=== PATIENT | male | born 1975 | race Caucasian/White ===

== ENCOUNTER 2022-09-05 15:18 | Outpatient (REF) | payer MEDICAID, SELFPAY ==
--- NOTE | ~2022-09-05 | XR_ITS ---
EXAMINATION: XR SHOULDER, LEFT CLINICAL INFORMATION: Chronic left shoulder pain. COMPARISON: Left shoulder radiographs dated 04/26/2006. TECHNIQUE: AP external rotation, Grashey, scapular Y, and axillary views of the left shoulder. FINDINGS: There is abnormal widening of the left acromioclavicular joint up to 2.2 cm. Corticated osseous densities are seen in the joint space. Chronic post surgical changes are seen in the distal left clavicle. If acute fracture. The left glenohumeral joint is intact. XR/XR shoulder LT min 2V IMPRESSION: Postsurgical/traumatic changes similar to the 2006 study. No acute abnormality.
== END 2022-09-05 15:19 | disposition home or self-care (01) ==
LOC: HO.XRAY 15:18
PROVIDERS: PCP Internal Medicine Geriatric Medicine; Visit Provider Emergency Medicine
DX: M25.512 Pain in left shoulder (principal)
CPT/HCPCS: 73030

== ENCOUNTER 2022-11-01 17:46 | Outpatient (REF) | payer MEDICAID, SELFPAY ==
--- NOTE | ~2022-11-01 | MR_ITS ---
EXAMINATION: MR SHOULDER WITHOUT CONTRAST, LEFT CLINICAL INFORMATION: Left shoulder pain. Prior surgery. COMPARISON: Most recent left shoulder radiographs dated 09/05/2022. TECHNIQUE: Multisequence MR imaging of the left shoulder was obtained without contrast on a high-field strength scanner. FINDINGS: ROTATOR CUFF: Mild supraspinatus and infraspinatus tendinosis. Within the distal junctional fibers there is a focus of low T1/T2 signal measuring up to 0.4 cm, consistent with calcific tendinitis. Bursal surface fraying without a full-thickness rotator cuff tendon tear. Mild distal subscapularis tendinosis. No muscle atrophy or fatty infiltration. BICEPS: Intact. CORACOACROMIAL ARCH: The undersurface of the acromion is curved with small subacromial spurs. Prior distal clavicular resection, unchanged. LABRUM/CAPSULE: Somewhat linear fluid signal within the undersurface of the superior and posterosuperior labrum, consistent with a nondisplaced undersurface tear. Intact joint capsule. GLENOHUMERAL JOINT/MARROW: Intact articular cartilage. No acute osseous injury. No significant joint effusion. MR/MR shoulder LT wo con IMPRESSION: 1. Mild supraspinatus and infraspinatus tendinosis with distal junctional fibers calcific tendinitis measuring 0.4 cm. Bursal surface fraying without a full-thickness rotator cuff tendon tear. Mild distal subscapularis tendinosis. 2. Distal clavicular resection with small subacromial spurs. 3. Nondisplaced undersurface tear of the superior and posterosuperior labrum.
== END 2022-11-01 17:47 | disposition home or self-care (01) ==
LOC: HO.MRI 17:46
PROVIDERS: PCP Internal Medicine Geriatric Medicine; Visit Provider Internal Medicine Geriatric Medicine
DX: M25.512 Pain in left shoulder (principal)
CPT/HCPCS: 73221

== ENCOUNTER 2022-11-29 13:46 | Outpatient (REF) | payer MEDICAID, SELFPAY ==
--- NOTE | ~2022-11-29 | XR_ITS ---
EXAMINATION: BILATERAL HANDS CLINICAL INFORMATION: Pain. COMPARISON: None available. TECHNIQUE: 3 views of each hand. FINDINGS: LEFT HAND: There is no evidence of acute fracture or dislocation of the left hand. There is mild degenerative spurring seen about the 1st carpometacarpal joint with some mild narrowing of the triscaphe joint. There is degenerative spurring about the 1st interphalangeal joint. There is minimal spurring without joint space narrowing seen involving the 2nd through 4th distal interphalangeal joints. No significant erosive changes. RIGHT HAND: There is no evidence of acute fracture or dislocation of the right hand. No significant erosive changes are noted. No destructive bony lesions are seen. There is minimal spurring about the 3rd and 5th distal interphalangeal joints. Prominent vascular calcifications are present. XR/XR hand LT min 3V IMPRESSION: Mild degenerative change is of the right and left hands as described without evidence of erosive arthritides.
--- NOTE | ~2022-11-29 | XR_ITS ---
EXAMINATION: BILATERAL HANDS CLINICAL INFORMATION: Pain. COMPARISON: None available. TECHNIQUE: 3 views of each hand. FINDINGS: LEFT HAND: There is no evidence of acute fracture or dislocation of the left hand. There is mild degenerative spurring seen about the 1st carpometacarpal joint with some mild narrowing of the triscaphe joint. There is degenerative spurring about the 1st interphalangeal joint. There is minimal spurring without joint space narrowing seen involving the 2nd through 4th distal interphalangeal joints. No significant erosive changes. RIGHT HAND: There is no evidence of acute fracture or dislocation of the right hand. No significant erosive changes are noted. No destructive bony lesions are seen. There is minimal spurring about the 3rd and 5th distal interphalangeal joints. Prominent vascular calcifications are present. XR/XR hand RT min 3V IMPRESSION: Mild degenerative change is of the right and left hands as described without evidence of erosive arthritides.
== END 2022-11-29 13:47 | disposition home or self-care (01) ==
LOC: HO.HHCX 13:46
PROVIDERS: Visit Provider Internal Medicine Geriatric Medicine
DX: M79.641 Pain in right hand (principal); M79.642 Pain in left hand
CPT/HCPCS: 73130

== ENCOUNTER 2023-08-25 11:52 | Outpatient (REF) | payer MEDICAID, SELFPAY ==
[2023-08-25 13:47] LABS: Basophils Percent Auto 0.6 % (0-2); Eosinophils Absolute Auto 0.1 X10*3/uL (0.0-0.4); Eosinophils Percent Auto 1.9 % (0-4); Hematocrit 40.8 % (42.0-52.0); Hemoglobin 13.4 g/dl (14.0-18.0); Imm Gran Abs Auto 0.01 X10*3/uL (0.00-0.03); Imm Gran Pct Auto 0.2 % (0.0-0.4); Lymphocytes Absolute Auto 2.1 X10*3/uL (1.2-4.9); Lymphocytes Percent Auto 45.6 % (20-40); MANUAL DIFF FLAG SCAN; Mean Corpuscular HGB Conc 32.8 g/dl (31.0-36.0); Mean Corpuscular Hemoglobin 28.9 pg (27.0-33.0); Mean Corpuscular Volume 88.1 fL (80.0-98.0); Mean Platelet Volume 8.9 fL (9.4-12.4); Monocytes Absolute Auto 0.6 X10*3/uL (0.1-1.2); Monocytes Percent Auto 11.9 % (2-11); Neutrophils Absolute Auto 1.8 x10*3/uL (2.0-8.3); Neutrophils Percent Auto 39.8 % (45-73); Platelet Count 337 X10*3/uL (160-400); Red Blood Count 4.63 X10*6/uL (4.60-5.80); Red Cell Distribution Width 11.4 % (11.0-16.0); SCAN SMEAR FLAG 1; White Blood Count 4.6 X10*3/uL (4.8-10.8)
[2023-08-25 14:27] LABS: Alanine Aminotransferase 23 U/L (0-40); Albumin Level 3.9 g/dL (3.5-5.0); Alkaline Phosphatase 68 U/L (39-117); Amylase 54 U/L (28-100); Anion Gap 12 (12-20); Aspartate Amino Transferase 17 U/L (5-37); Bilirubin Direct 0.4 mg/dL (0.0-0.5); Bilirubin Total 1.5 mg/dL (0.0-1.0); Blood Urea Nitrogen 8 mg/dL (9-16); Calcium 9.2 mg/dL (8.4-10.2); Carbon Dioxide 28 mmol/L (22-29); Chloride 105 mmol/L (96-108); Estimated Glomerular Filt Rate > 60; Glucose Random 119 mg/dL (60-115); Lipase 57 U/L (8-78); Potassium 3.5 mmol/L (3.3-5.1); Sodium 141 mmol/L (135-145); Total Protein 7.6 g/dL (6.5-8.0)
[2023-08-25 14:47] LABS: SLIDE REVIEW VERIFIED
== END 2023-08-25 11:53 | disposition home or self-care (01) ==
LOC: HO.HHCL 11:52
PROVIDERS: Visit Provider Internal Medicine
DX: R10.30 Lower abdominal pain, unspecified (principal); R19.7 Diarrhea, unspecified
CPT/HCPCS: 36415; 80048; 80076; 82150; 83690; 85025

== ENCOUNTER 2024-03-25 14:21 | Outpatient (REF) | payer MEDICAID, SELFPAY ==
[2024-03-25 15:58] LABS: MANUAL DIFF FLAG NO
[2024-03-25 16:12] LABS: Basophils Percent Auto 0.4 % (0-2); Eosinophils Absolute Auto 0.1 X10*3/uL (0.0-0.4); Eosinophils Percent Auto 1.1 % (0-4); Hematocrit 39.9 % (42.0-52.0); Hemoglobin 13.6 g/dl (14.0-18.0); Imm Gran Abs Auto 0.03 X10*3/uL (0.00-0.03); Imm Gran Pct Auto 0.4 % (0.0-0.4); Lymphocytes Absolute Auto 2.2 X10*3/uL (1.2-4.9); Lymphocytes Percent Auto 31.1 % (20-40); Mean Corpuscular HGB Conc 34.1 g/dl (31.0-36.0); Mean Corpuscular Hemoglobin 29.6 pg (27.0-33.0); Mean Corpuscular Volume 86.9 fL (80.0-98.0); Mean Platelet Volume 9.3 fL (9.4-12.4); Monocytes Absolute Auto 0.5 X10*3/uL (0.1-1.2); Monocytes Percent Auto 6.5 % (2-11); Neutrophils Absolute Auto 4.3 x10*3/uL (2.0-8.3); Neutrophils Percent Auto 60.5 % (45-73); Platelet Count 340 X10*3/uL (160-400); Red Blood Count 4.59 X10*6/uL (4.60-5.80); Red Cell Distribution Width 11.6 % (11.0-16.0); White Blood Count 7.1 X10*3/uL (4.8-10.8)
[2024-03-25 16:37] LABS: Alanine Aminotransferase 42 U/L (0-40); Albumin Level 4.3 g/dL (3.5-5.0); Alkaline Phosphatase 99 U/L (39-117); Anion Gap 13 (12-20); Aspartate Amino Transferase 25 U/L (5-37); Bilirubin Total 0.8 mg/dL (0.0-1.0); Blood Urea Nitrogen 15 mg/dL (9-16); Calcium 10.1 mg/dL (8.4-10.2); Carbon Dioxide 26 mmol/L (22-29); Chloride 101 mmol/L (96-108); Cholesterol 126 mg/dL (<200); Estimated Glomerular Filt Rate > 60; Glucose Random 270 mg/dL (60-115); HDL Cholesterol 41 mg/dL (>40); LDL Cholesterol Calculated 61 mg/dL (<100); Potassium 3.6 mmol/L (3.3-5.1); Sodium 136 mmol/L (135-145); Total Protein 7.9 g/dL (6.5-8.0); Triglycerides 123 mg/dL (<150)
[2024-03-25 16:41] LABS: Creatinine Urine 172.33 mg/dL; Microalbum/Creatinine Ratio Ur 31.9 ug/mg cr (<30)
== END 2024-03-25 14:22 | disposition home or self-care (01) ==
LOC: HO.HHCL 14:21
PROVIDERS: Visit Provider Internal Medicine Geriatric Medicine
DX: E11.65 Type 2 diabetes mellitus with hyperglycemia (principal); Z79.4 Long term (current) use of insulin
CPT/HCPCS: 36415; 80053; 80061; 82043; 82570; 85025